=== PATIENT | female | born 1930 | race Caucasian/White ===

== ENCOUNTER 2017-12-22 20:45 | Inpatient (IN) | payer MEDICARE ==
[~2017-12-22] VITALS: Ht 152.4 cm; Wt 55.3 kg
[2017-12-22 20:20] VITALS: BP 123/61
--- NOTE | 2017-12-22 20:20 | NUR ---
Admitting 87 year old female from [facility] with diagnosis of S/P R Hip Fracture s/p fall at home. ORIF w/ kevin placement by Dr. Carrington on 12/20. Arrived to unit via gurney accompanied by 2 EMT's and daughter. No acute distress. Denies pain or discomfort at this time. VS WNL 123/61, HR 83, 19 RR, 99% RA. Breathing even and unlabored, denies SOB. Right hip incision site dressing dry and intact, pt refusing pictures at this time stating she "does not want the dressing removed until the doctor comes to see it", per RN at [facility], first dressing already done by (12/22/17) before pt transferred to ARU. No other skin issues noted, dry and intact, warm to touch. Oriented to room and unit. Ambulatory w/ walker x 1 assist with steady gait. made aware of pt arrival and med recon completed. All safety measures and fall precautions maintained. Call light and all personal belongings within reach. Will continue to monitor. Will endorse to AM shift.
--- NOTE | 2017-12-22 20:45 | NUR ---
Pt noted to have medications on bedside table (Synthroid 25 mcg, Anastrozole 1mg tA, and Multivitamins [I-Caps]), when informed that medications needed to be taken to send to pharmacy, patient refused stating she wishes to take her own medications. Explained hospital policy and procedures and that per protocol, medication brought from home needs to be taken to pharmacy and MD can give order for her to take her own meds, but pt continued to refuse. Safety maintained. Call light within reach. Will continue to monitor. Will endorse to AM shift. Addendum: 12/22/17 at 2255 by Tyler Reed RN Anastrozole 1mg tab.
[2017-12-22] MEDS ORDERED: Z GUARD REMEDY PASTE 57 GM TUBE TOP PRN (21:00)
--- NOTE | 2017-12-22 21:00 | NUR ---
Spoke with Veronica from Pharmacy, made aware of pt refusal for medications to be taken and brought to pharmacy. Safety maintained. Call light within reach. Will continue to monitor.
[2017-12-22] MEDS ORDERED: ANAS1TAB NG (21:24)
[2017-12-22] MEDS ORDERED: TRAM50TA2 PO (21:24)
[2017-12-22] MEDS ORDERED: LEVO50TA8 PO (21:24)
[2017-12-22] MEDS ORDERED: ENOX40DI SQ (21:24)
[2017-12-22] MEDS ORDERED: ACET-2154 PO (21:24)
[2017-12-22] MEDS: TRAMADOL HCL 50 MG TABLET PO SCH (21:45)
[2017-12-22] MEDS: ACETAMINOPHEN 325 MG TABLET PO SCH (21:45)
--- NOTE | 2017-12-22 22:00 | NUR ---
Per pt, do not wake her up if she falls asleep because she has a hard time falling asleep after being woken up. No facial indications of pain noted. All safety measures and fall precautions maintained. Call light within reach. Will continue to monitor.
[2017-12-23] MEDS: ACETAMINOPHEN 325 MG TABLET PO SCH ×4 (05:52→16:55)
--- NOTE | 2017-12-23 06:04 | NUR ---
Patient slept intermittently throughout the shift, waking up multiple times to call to use the restroom. Assisted to the restroom w/ walker x 1 assist. No acute distress. 0600 Tylenol 650 mg PO given. Refusing Synthroid because pt states she "wants to use her own medication". Safety maintained. Good pericare rendered. Turned and repositions for comfort. Refusing pictures at this time stating she "wants the doctor to see it first." All safety measures and fall precautions maintained. Call light and all personal belongings within reach. Will endorse inventory list to AM shift. Refusing to get ready for AM therapy, stating "I want to get as much sleep as I can before therapy." Will endorse to AM shift. Will continue to monitor.
[2017-12-23] MEDS: LEVOTHYROXINE SODIUM 50 MCG TABLET PO SCH (06:10)
[2017-12-23 06:13] VITALS: BP 107/59
[2017-12-23 07:09] VITALS: BP 110/57
[2017-12-23] MEDS: TRAMADOL HCL 50 MG TABLET PO SCH ×3 (08:25→16:54)
[2017-12-23] MEDS: ENOXAPARIN SODIUM 40 MG/0.4 ML DISP.SYRIN SQ SCH (08:27)
[2017-12-23] MEDS ORDERED: ANASTROZOLE 1 MG TABLET NG SCH (09:00)
--- NOTE | 2017-12-23 09:14 | NUR ---
Patient noted sitting up on side of the bed, all am medications taken, Patient self administered Arimidex at bedside, medication at bed side bagged and sent to pharmacy with patient consent, complaints of right hip pain 01/31, scheduled tramadol given at this time, no signs of distress noted, call light in reach, bed locked and in lowest position
[2017-12-23 09:26] LABS: BASOPHILS % (AUTO) 0.3 % (0.0-2.0); EOSINOPHILS # (AUTO) 0.2 K/uL (0.0-0.7); EOSINOPHILS % (AUTO) 1.3 % (0.0-7.0); HEMOGLOBIN 9.3 g/dL (10.9-14.3); LYMPHOCYTES # (AUTO) 1.1 K/uL (20.0-40.0); LYMPHOCYTES % (AUTO) 9.3 % (20.5-51.5); MEAN CORPUSCULAR HEMOGLOBIN 31.1 uug (24.7-32.8); MEAN CORPUSCULAR HGB CONC 34 g/dL (32.3-35.6); MEAN CORPUSCULAR VOLUME 90.7 fL (75.5-95.3); MONOCYTES # (AUTO) 1.2 K/uL (2.0-10.0); NEUTROPHILS # (AUTO) 9.2 K/uL (1.8-8.9); NEUTROPHILS % (AUTO) 79.1 % (38.5-71.5); PLATELET COUNT (AUTO) 188 K/uL (179-408); RED BLOOD CELL COUNT(AUTO) 2.98 MIL/uL (3.63-4.92); WHITE BLOOD COUNT (AUTO) 11.6 K/uL (3.8-11.8)
[2017-12-23 09:27] LABS: CARBON DIOXIDE 24 mmol/L (21-32); CHLORIDE 104 mmol/L (98-107); CREATININE 0.9 mg/dL (0.6-1.3); GLUCOSE 131 mg/dL (74-106); POTASSIUM 3.4 mmol/L (3.5-5.1); UREA NITROGEN, BLOOD 16 mg/dL (7-18)
[2017-12-23 10:01] LABS: BAND % (MANUAL) 1 % (0-10); LYMPHOCYTES % (MANUAL) 11 % (20-40); METAMYELOCYTES % 1 % (0-1); MONOCYTES % (MANUAL) 13 % (2-10); MYELOCYTES % 2 % (0-0); NEUTROPHILS % (MANUAL) 72 % (42-75)
[2017-12-23 16:08] VITALS: BP 110/51
[2017-12-23 21:00] VITALS: BP 106/60
[2017-12-23] MEDS ORDERED: TRAMADOL HCL 50 MG TABLET ONE (22:21)
--- NOTE | 2017-12-24 01:15 | NUR ---
aaox4 sitting at the chair at beginning of the shift. needs attended. ambulates to the BR with walker. Voiding freely. complained of pain on the right hip. tramadol 50 mg po given for pain. will monitor patient. assisted to bed. slept well. kept comfortable. no acute disttress noted. right hip dressing clean dry and intact.
--- NOTE | 2017-12-24 05:18 | NUR ---
slept well most of the shift. needs attended. denies any pain nor any discomfort. will monitor patient voiding well.
[2017-12-24 05:56] VITALS: BP 120/66
[2017-12-24] MEDS: LEVOTHYROXINE SODIUM 50 MCG TABLET PO SCH (06:03)
[2017-12-24 08:00] VITALS: BP 122/68
--- NOTE | 2017-12-24 08:17 | NUR ---
patient noted sitting up on the side of the bed, no complaints of pain at this time, no signs of distress noted, call light in reach, bed locked and in lowest position, assisted to restroom via walker at this time
[2017-12-24] MEDS: ENOXAPARIN SODIUM 40 MG/0.4 ML DISP.SYRIN SQ SCH (08:47)
[2017-12-24] MEDS: [UNRECOGNIZED DRUG - OTHER] PO SCH (08:47)
[2017-12-24] MEDS: ANASTROZOLE 1 MG PO SCH (08:47)
[2017-12-24] MEDS ORDERED: TRAMADOL HCL 50 MG TABLET PO PRN (17:00)
--- NOTE | 2017-12-24 19:58 | NUR ---
aaox4 ambulates to the BR with walker. voiding well. right hip dressing clean dry and intact. denies any pain at this time. will monitor patient. kept comfortable. right leg swollen. Right leg elevated on pillows while in bed. making needs known.will monitor patient.
[2017-12-24 20:26] VITALS: BP 116/58
[2017-12-24] MEDS: ACETAMINOPHEN 325 MG TABLET PO PRN (20:55)
[2017-12-25] MEDS: TRAMADOL HCL 50 MG TABLET PO PRN ×2 (03:17→13:22)
--- NOTE | 2017-12-25 04:57 | NUR ---
sleeping at short intervals. complained of right sided hip pain.medicated with tramadol as ordered. needs attended. ambulates to the BR with walker under supervision. voiding well.will monitor patient.
[2017-12-25 05:03] VITALS: BP 114/61
[2017-12-25] MEDS: LEVOTHYROXINE SODIUM 50 MCG TABLET PO SCH (06:22)
--- NOTE | 2017-12-25 07:33 | NUR ---
Patient noted being assisted to restroom at this time, no complaints of pain, no signs of distress, call light in reach
[2017-12-25 08:00] VITALS: BP 107/57
[2017-12-25] MEDS: ANASTROZOLE 1 MG PO SCH (08:56)
[2017-12-25] MEDS: [UNRECOGNIZED DRUG - OTHER] PO SCH (08:56)
[2017-12-25] MEDS: ENOXAPARIN SODIUM 40 MG/0.4 ML DISP.SYRIN SQ SCH (08:58)
[2017-12-25] MEDS: SENNOSIDES 1 TABLET PO SCH ×2 (11:41→20:28)
--- NOTE | 2017-12-25 13:50 | NUR ---
INTERDISCIPLINARY TEAM CONFERENCE
--- NOTE | 2017-12-25 15:12 | NUR ---
I agree Addendum: 12/25/17 at 1512 by TONY HERNÁNDEZ OT Amended: Links added.
[2017-12-25 16:00] VITALS: BP 115/53
[2017-12-25] MEDS ORDERED: POTASSIUM CHLORIDE 20 MEQ TAB.PRT.SR PO ONE (16:45)
--- NOTE | 2017-12-25 19:30 | NUR ---
Received report from day shift nurse. Patient stable at start of shift with no acute distress. Patient currently walking around the room with walker. Pertinent assessment completed. Noted with bruising at RLE. Dressing is clean, dry, intact. No s/s of infection or inflammation noted at surgical site. Patient has swelling of RLE. Will keep extremity elevated during shift. Patient denies pain & SOB. Bed in low position & locked. Call light within reach. Will continue to monitor through shift.
[2017-12-25] MEDS: DOCUSATE SODIUM 100 MG CAPSULE PO SCH (20:28)
--- NOTE | 2017-12-25 20:28 | NUR ---
Patient refused 2100 dose of colace & senokot. Patient stating that she already had laxatives this AM & is having regular bowel movements. Explained risks & benefits. Will continue to monitor.
[2017-12-25 21:09] VITALS: BP 106/59
[2017-12-26 05:37] VITALS: BP 114/56
[2017-12-26] MEDS: LEVOTHYROXINE SODIUM 50 MCG TABLET PO SCH (06:32)
[2017-12-26 08:07] VITALS: BP 107/57
[2017-12-26] MEDS: [UNRECOGNIZED DRUG - OTHER] PO SCH (09:59)
[2017-12-26] MEDS: ANASTROZOLE 1 MG PO SCH (09:59)
[2017-12-26] MEDS: ENOXAPARIN SODIUM 40 MG/0.4 ML DISP.SYRIN SQ SCH (10:01)
[2017-12-26] MEDS ORDERED: LEVO25TA2 PO (10:09)
[2017-12-26 11:03] LABS: EOSINOPHILS # (AUTO) 0.2 K/uL (0.0-0.7); WHITE BLOOD COUNT (AUTO) 9.2 K/uL (3.8-11.8)
[2017-12-26 11:07] LABS: BASOPHILS % (AUTO) 0.2 % (0.0-2.0); EOSINOPHILS % (AUTO) 2.2 % (0.0-7.0); HEMOGLOBIN 9.1 g/dL (10.9-14.3); LYMPHOCYTES # (AUTO) 1.2 K/uL (20.0-40.0); LYMPHOCYTES % (AUTO) 12.8 % (20.5-51.5); MEAN CORPUSCULAR HEMOGLOBIN 32.3 uug (24.7-32.8); MEAN CORPUSCULAR HGB CONC 35 g/dL (32.3-35.6); MEAN CORPUSCULAR VOLUME 92.4 fL (75.5-95.3); MONOCYTES # (AUTO) 1.3 K/uL (2.0-10.0); NEUTROPHILS # (AUTO) 6.5 K/uL (1.8-8.9); NEUTROPHILS % (AUTO) 70.8 % (38.5-71.5); RED BLOOD CELL COUNT(AUTO) 2.82 MIL/uL (3.63-4.92)
[2017-12-26 11:14] LABS: PLATELET COUNT (AUTO) 294 K/uL (179-408)
[2017-12-26 11:59] LABS: EOSINOPHILS % (MANUAL) 1 % (0-8); LYMPHOCYTES % (MANUAL) 13 % (20-40); METAMYELOCYTES % 5 % (0-1); MONOCYTES % (MANUAL) 13 % (2-10); MYELOCYTES % 2 % (0-0); NEUTROPHILS % (MANUAL) 66 % (42-75)
[2017-12-26 16:22] VITALS: BP 105/59
[2017-12-26] MEDS: TRAMADOL HCL 50 MG TABLET PO PRN (17:05)
--- NOTE | 2017-12-26 20:00 | NUR ---
PT ALERT AND ORIENTED IN BED. NO DISTRESS NOTED. REFUSING THE COLACE AND SENOKOT, GAVE EDUCATION, PT STILL REFUSING. ICE PACK PLACED ON RIGHT HIP. SAFETY MAINTAINED. CALL LIGHT WITHIN REACH. WILL CONTINUE TO MONITOR.
[2017-12-26 20:42] VITALS: BP 106/51
[2017-12-26] MEDS: DOCUSATE SODIUM 100 MG CAPSULE PO SCH (20:56)
[2017-12-26] MEDS: SENNOSIDES 1 TABLET PO SCH (20:56)
--- NOTE | 2017-12-27 06:58 | NUR ---
PT ALERT AND ORIENTED IN BED. NO DISTRESS NOTED. COMPLIANT WITH NURSING CARE. CLEAN AND DRY. ICE PACK ON RIGHT LEG. SAFETY MAINTAINED. CALL LIGHT WITHIN REACH.
[2017-12-27] MEDS ORDERED: LEVOTHYROXINE SODIUM 25 MCG TABLET PO SCH (07:00)
[2017-12-27 08:22] VITALS: BP 106/53
[2017-12-27] MEDS: ANASTROZOLE 1 MG PO SCH (09:42)
[2017-12-27] MEDS: [UNRECOGNIZED DRUG - OTHER] PO SCH (09:42)
[2017-12-27] MEDS: TRAMADOL HCL 50 MG TABLET PO PRN ×2 (09:43→21:55)
[2017-12-27] MEDS: ENOXAPARIN SODIUM 40 MG/0.4 ML DISP.SYRIN SQ SCH (09:47)
[2017-12-27 16:09] VITALS: BP 100/52
[2017-12-27 19:30] VITALS: BP 107/55
[2017-12-27] MEDS: DOCUSATE SODIUM 100 MG CAPSULE PO SCH (20:33)
[2017-12-27] MEDS: SENNOSIDES 1 TABLET PO SCH (20:34)
--- NOTE | 2017-12-28 04:13 | NUR ---
In fair condition. AAOx3. OOB to the BR with walker to the BR. Voiding without any difficulty. Refuse senokot and colace @ 2100, says she already had a BM. Even though how I explained the need for stool softener because she is on pain management so that she dont get constipated, still patient refused it. Pain meds given as needed. Right lower extremity swollen, black and blue. For doppler/ duplex study of the RLE today. Will monitor patient.Needs attended. Kept comfortable.Fall precautions maintained. Siderails up for safety.
[2017-12-28] MEDS: LEVOTHYROXINE 25 MCG PO SCH (06:44)
[2017-12-28] MEDS: [UNRECOGNIZED DRUG - OTHER] PO SCH (06:44)
[2017-12-28 08:00] VITALS: BP 95/48
[2017-12-28] MEDS: [UNRECOGNIZED DRUG - OTHER] PO SCH (08:29)
[2017-12-28] MEDS: ANASTROZOLE 1 MG PO SCH (08:29)
[2017-12-28] MEDS: ENOXAPARIN SODIUM 40 MG/0.4 ML DISP.SYRIN SQ SCH (08:31)
--- NOTE | 2017-12-28 09:37 | NUR ---
Patient noted sitting on the side of the bed, no complaints of pain, no signs of distress noted, call light in reach, bed locked and in lowest position, x 2 bed rails
[2017-12-28] MEDS: TRAMADOL HCL 50 MG TABLET PO PRN ×2 (12:31→21:15)
[2017-12-28 16:00] VITALS: BP 125/62
[2017-12-28 19:30] VITALS: BP 113/55
[2017-12-28] MEDS: DOCUSATE SODIUM 100 MG CAPSULE PO SCH (21:14)
[2017-12-28] MEDS: SENNOSIDES 1 TABLET PO SCH (21:14)
--- NOTE | 2017-12-29 01:01 | NUR ---
aaox4 ambulates to the BR voiding without difficulty. needs attended. medicated with tramadol for right hip pain. RLE swollen, hematoma noted. Doppler study done, negative for DVT. Made comfortable. No acute distress noted. fall precautions maintained. siderails up for safety. RLE elevated on pillow.
[2017-12-29] MEDS: [UNRECOGNIZED DRUG - OTHER] PO SCH (06:47)
[2017-12-29] MEDS: LEVOTHYROXINE 25 MCG PO SCH (06:47)
--- NOTE | 2017-12-29 07:50 | NUR ---
Patient noted sitting on the side of the bed, no complaints of pain at this time, no signs of distress noted, call light in reach, bed locked and in lowest position, all needs met at this time
[2017-12-29 08:00] VITALS: BP 117/56
[2017-12-29] MEDS: [UNRECOGNIZED DRUG - OTHER] PO SCH (08:39)
[2017-12-29] MEDS: ANASTROZOLE 1 MG PO SCH (08:39)
[2017-12-29] MEDS: ENOXAPARIN SODIUM 40 MG/0.4 ML DISP.SYRIN SQ SCH (08:40)
[2017-12-29 19:55] LABS: BASOPHILS % (AUTO) 0.4 % (0.0-2.0); EOSINOPHILS # (AUTO) 0.2 K/uL (0.0-0.7); EOSINOPHILS % (AUTO) 2.1 % (0.0-7.0); HEMATOCRIT 27.2 % (31.2-41.9); HEMOGLOBIN 9.4 g/dL (10.9-14.3); LYMPHOCYTES # (AUTO) 1.4 K/uL (20.0-40.0); LYMPHOCYTES % (AUTO) 14.3 % (20.5-51.5); MEAN CORPUSCULAR HEMOGLOBIN 32.3 uug (24.7-32.8); MEAN CORPUSCULAR HGB CONC 34 g/dL (32.3-35.6); MONOCYTES # (AUTO) 1.2 K/uL (2.0-10.0); NEUTROPHILS # (AUTO) 6.9 K/uL (1.8-8.9); NEUTROPHILS % (AUTO) 71.2 % (38.5-71.5); PLATELET COUNT (AUTO) 350 K/uL (179-408); RED BLOOD CELL COUNT(AUTO) 2.89 MIL/uL (3.63-4.92); WHITE BLOOD COUNT (AUTO) 9.7 K/uL (3.8-11.8)
[2017-12-29 19:58] LABS: CARBON DIOXIDE 27 mmol/L (21-32); CHLORIDE 102 mmol/L (98-107); CREATININE 0.8 mg/dL (0.6-1.3); GLUCOSE 157 mg/dL (74-106); POTASSIUM 4.1 mmol/L (3.5-5.1); UREA NITROGEN, BLOOD 15 mg/dL (7-18)
--- NOTE | 2017-12-29 20:00 | NUR ---
RECEIVED PATIENT AWAKE IN BED WITH VISITOR AT BEDSIDE. PATIENT IS A/O X4. DENIES PAIN OR DISCOMFORT. PATIENT IS CONCERNED WITH THE INCREASED SWELLING NOTED TO HER RIGHT LEG. REPORTED DURING SHIFT CHANGE THAT DR. CARDONA WAS NOTIFIED AND AWARE OF SWELLING. NEURO-VASCULAR CHECKS WNL. PEDAL PULSES WNL. NO RESP. DISTRESS NOTED. VS WNL. CALL LIGHT IN REACH. ALL NEEDS ATTENDED. WILL CONTINUE TO MONITOR AND ASSESS.
[2017-12-29] MEDS: SENNOSIDES 1 TABLET PO SCH (20:47)
[2017-12-29] MEDS: DOCUSATE SODIUM 100 MG CAPSULE PO SCH (20:47)
[2017-12-29 20:49] LABS: BAND % (MANUAL) 5 % (0-10); EOSINOPHILS % (MANUAL) 3 % (0-8); LYMPHOCYTES % (MANUAL) 15 % (20-40); METAMYELOCYTES % 1 % (0-1); MONOCYTES % (MANUAL) 10 % (2-10); MYELOCYTES % 1 % (0-0); NEUTROPHILS % (MANUAL) 65 % (42-75)
[2017-12-29 21:10] VITALS: BP 122/74
[2017-12-29] MEDS: TRAMADOL HCL 50 MG TABLET PO PRN (22:28)
[2017-12-29 22:36] LABS: THYROID STIMULATING HORMONE 2.679 mIU/mL (0.358-3.740)
[2017-12-30 05:30] VITALS: BP 131/63
[2017-12-30] MEDS: LEVOTHYROXINE 25 MCG PO SCH (06:35)
[2017-12-30] MEDS: [UNRECOGNIZED DRUG - OTHER] PO SCH (06:35)
--- NOTE | 2017-12-30 06:46 | NUR ---
PATIENT RESTING IN BED. SLEPT WELL. DENIES PAIN AT THIS THIS TIME. CALL LIGHT IN REACH. ALL NEEDS ATTENDED. WILL CONTINUE TO MONITOR.
[2017-12-30 08:16] VITALS: BP 94/52
[2017-12-30] MEDS: TRAMADOL HCL 50 MG TABLET PO PRN (09:25)
[2017-12-30] MEDS: ANASTROZOLE 1 MG PO SCH (09:26)
[2017-12-30] MEDS: [UNRECOGNIZED DRUG - OTHER] PO SCH (09:26)
[2017-12-30] MEDS: ENOXAPARIN SODIUM 40 MG/0.4 ML DISP.SYRIN SQ SCH (10:44)
--- NOTE | 2017-12-30 15:17 | NUR ---
SBAR report received, board updated. Pt assessed, denies any c/o discomfort, pain, or acute distress. Pt compliant with all morning medication administration. Pt able to make her needs known without difficulty. Pt compliant with all therapies as offered. Bed in locked, lowest position with side rails up x2. All safety and comfort measures implemented at this time. Personal items and call light placed within reach, will continue to monitor.
[2017-12-30 17:19] VITALS: BP 110/60
[2017-12-30] MEDS: DOCUSATE SODIUM 100 MG CAPSULE PO SCH (20:23)
[2017-12-30] MEDS: SENNOSIDES 1 TABLET PO SCH (20:36)
[2017-12-30 21:12] VITALS: BP 115/50
[2017-12-31] MEDS: ACETAMINOPHEN 325 MG TABLET PO PRN (03:02)
--- NOTE | 2017-12-31 05:58 | NUR ---
Patient slept comfortably throughout the night. No c/o pain and discomfort. No acute distress. No SOB. Kept clean and dry. BLE kept elevated. All needs attended to promptly. Call light within reach. Will continue to monitor.
[2017-12-31] MEDS: LEVOTHYROXINE 25 MCG PO SCH (06:38)
[2017-12-31] MEDS: [UNRECOGNIZED DRUG - OTHER] PO SCH (06:38)
[2017-12-31 08:00] VITALS: BP 100/46
[2017-12-31] MEDS: [UNRECOGNIZED DRUG - OTHER] PO SCH (08:47)
[2017-12-31] MEDS: ANASTROZOLE 1 MG PO SCH (08:47)
[2017-12-31] MEDS: ENOXAPARIN SODIUM 40 MG/0.4 ML DISP.SYRIN SQ SCH (08:51)
[2017-12-31] MEDS: TRAMADOL HCL 50 MG TABLET PO PRN (09:43)
--- NOTE | 2017-12-31 14:29 | NUR ---
SBAR report received, board updated. Pt assessed, no c/o pain or discomfort. Pt assisted to shower, incisional wound shows no s/s of infection and dressings changed as ordered. Pt compliant with all routine morning medication administration. Pt assisted to bathroom and pack to wheelchair safely. Pt able to make needs known and all safety measures in place. Call light and personal items placed within reach. Bed in locked and lowest position with side rails up x2. Will continue to monitor.
[2017-12-31 15:35] VITALS: BP 125/53
--- NOTE | 2017-12-31 16:38 | NUR ---
Pt reports new s/s of swelling, non-pitting edema, and faint bruise appearing to the top and right side of the right foot. Pictures taken and updated in chart. MD notified. Surgeon Dr. Blackburn called, and paged by biomechanical engineer. Will await directions on how to follow up. No other c/o pain and concerns addressed.
[2017-12-31] MEDS: DOCUSATE SODIUM 100 MG CAPSULE PO SCH (20:17)
[2017-12-31] MEDS: SENNOSIDES 1 TABLET PO SCH (20:17)
[2017-12-31 20:26] VITALS: BP 107/57
[2018-01-01] MEDS: ACETAMINOPHEN 325 MG TABLET PO PRN ×2 (02:55→22:06)
--- NOTE | 2018-01-01 04:24 | NUR ---
aaox4 ambulates to the BR with walker. No acute distress noted. Needs attended. RLE non-pitting edema noted. Bruising noted. RLE elevated on pillow. Kept comfortable. Will monitor patient. complained of foot pain,Tylenol given, Will monitor patient.
[2018-01-01 06:10] VITALS: BP 146/75
[2018-01-01] MEDS: [UNRECOGNIZED DRUG - OTHER] PO SCH (06:41)
[2018-01-01] MEDS: LEVOTHYROXINE 25 MCG PO SCH (06:41)
[2018-01-01 07:58] LABS: BASOPHILS % (AUTO) 0.7 % (0.0-2.0); EOSINOPHILS # (AUTO) 0.2 K/uL (0.0-0.7); EOSINOPHILS % (AUTO) 3.2 % (0.0-7.0); HEMATOCRIT 27.6 % (31.2-41.9); HEMOGLOBIN 9.6 g/dL (10.9-14.3); LYMPHOCYTES # (AUTO) 1.3 K/uL (20.0-40.0); LYMPHOCYTES % (AUTO) 19.2 % (20.5-51.5); MEAN CORPUSCULAR HEMOGLOBIN 32.5 uug (24.7-32.8); MEAN CORPUSCULAR HGB CONC 35 g/dL (32.3-35.6); MEAN CORPUSCULAR VOLUME 93.7 fL (75.5-95.3); MONOCYTES # (AUTO) 0.8 K/uL (2.0-10.0); MONOCYTES % (AUTO) 11.9 % (0.0-11.0); NEUTROPHILS # (AUTO) 4.4 K/uL (1.8-8.9); PLATELET COUNT (AUTO) 348 K/uL (179-408); RED BLOOD CELL COUNT(AUTO) 2.95 MIL/uL (3.63-4.92); WHITE BLOOD COUNT (AUTO) 6.8 K/uL (3.8-11.8)
[2018-01-01 08:11] LABS: ALANINE AMINOTRANSFERASE 70 U/L (14-59); ALKALINE PHOSPHATASE 196 U/L (50-136); ASPARTATE AMINOTRANSFERASE 34 U/L (15-37); BILIRUBIN,TOTAL 0.9 mg/dL (0.2-1.0); CARBON DIOXIDE 28 mmol/L (21-32); CHLORIDE 103 mmol/L (98-107); CREATININE 0.9 mg/dL (0.6-1.3); GLUCOSE 107 mg/dL (74-106); MAGNESIUM 2.1 mg/dL (1.8-2.4); PHOSPHOROUS 3.3 mg/dL (2.5-4.9); POTASSIUM 3.8 mmol/L (3.5-5.1); TOTAL PROTEIN, SERUM 5.7 g/dL (6.4-8.2); UREA NITROGEN, BLOOD 16 mg/dL (7-18)
[2018-01-01] MEDS: ANASTROZOLE 1 MG PO SCH (08:17)
[2018-01-01] MEDS: [UNRECOGNIZED DRUG - OTHER] PO SCH (08:17)
[2018-01-01] MEDS: TRAMADOL HCL 50 MG TABLET PO PRN ×2 (08:18→23:42)
[2018-01-01] MEDS: ENOXAPARIN SODIUM 40 MG/0.4 ML DISP.SYRIN SQ SCH (08:20)
[2018-01-01 08:29] VITALS: BP 102/59
[2018-01-01 09:44] LABS: BAND % (MANUAL) 4 % (0-10); BASOPHILS % (MANUAL) 1 % (0-2); EOSINOPHILS % (MANUAL) 4 % (0-8); LYMPHOCYTES % (MANUAL) 20 % (20-40); METAMYELOCYTES % 1 % (0-1); MONOCYTES % (MANUAL) 12 % (2-10); MYELOCYTES % 1 % (0-0); NEUTROPHILS % (MANUAL) 57 % (42-75)
--- NOTE | 2018-01-01 13:35 | NUR ---
INTERDISCIPLINARY TEAM CONFERENCE
[2018-01-01 16:06] VITALS: BP 113/62
--- NOTE | 2018-01-01 18:27 | NUR ---
SBAR report received, board updated. Pt assessed, denies pain and no distress noted. Pt able to make needs known. Pt compliant with all routine medication administration. Anticipated discharge plans discussed and arranged for 1300 picker and sorter load and unload tomorrow by ambulance through ed case manager. Pt assisted with repositioning for comfort and to elevate RLE and offload BL heels. No s/s of infection present at incision site. Bruises remain evident to entire RLE with depended edema. All comfort and safety needs attended to promptly this shift. Call light and personal items placed within reach. Will continue to monitor, and endorse to oncoming senior technologist.
--- NOTE | 2018-01-01 19:00 | NUR ---
Received patient in bed. Alert and verbally responsive. Able to make needs known. Denies any pain and discomfort at this time. No acute distress. No SOB. Both lower extremities kept elevated with pillows. All needs attended to promptly. Call light within reach. Will continue to monitor.
[2018-01-01 20:40] VITALS: BP 114/57
[2018-01-01] MEDS: DOCUSATE SODIUM 100 MG CAPSULE PO SCH (20:55)
[2018-01-01] MEDS: SENNOSIDES 1 TABLET PO SCH (20:56)
--- NOTE | 2018-01-01 21:30 | NUR ---
Patient seen by Dr. Alvarenga this evening. Per Dr. Alvarenga he wants patient to stay till Thursday. TMS and Prescription done as of now. Per MD he says he will speak with CM first and confirm if patient will be discharged home tomorrow 01/02. Patient is aware.
[2018-01-02] MEDS: [UNRECOGNIZED DRUG - OTHER] PO SCH (06:26)
[2018-01-02] MEDS: LEVOTHYROXINE 25 MCG PO SCH (06:26)
--- NOTE | 2018-01-02 06:48 | NUR ---
Patient slept comfortably throughout the night. No c/o pain and discomfort. No acute distress. No SOB. Kept clean and dry. Tolerated AM med. All needs attended to promptly. Call light within reach. Will continue to monitor.
[2018-01-02 08:23] VITALS: BP 104/53
[2018-01-02] MEDS: ENOXAPARIN SODIUM 40 MG/0.4 ML DISP.SYRIN SQ SCH (09:05)
[2018-01-02] MEDS: ANASTROZOLE 1 MG PO SCH (09:06)
[2018-01-02] MEDS: [UNRECOGNIZED DRUG - OTHER] PO SCH (09:06)
--- NOTE | 2018-01-02 12:17 | NUR ---
Patient noted sitting up on the side of the bed, denies pain at this time, no signs of distress, call light in reach, bed locked and in lowest position, x 2 bed rails, all AM medications taken without trouble, all needs met at this time
[2018-01-02] MEDS: TRAMADOL HCL 50 MG TABLET PO PRN (16:12)
--- NOTE | 2018-01-02 19:30 | NUR ---
PT ALERT AND ORIENTED IN BED. NO DISTRESS NOTED. CLEAN AND DRY. ALL NEEDS MET, COMPLIANT WITH NURSING CARE. SAFETY MAINTAINED. CALL LIGHT WITHIN REACH. WILL CONTINUE TO MONITOR.
[2018-01-02 20:02] VITALS: BP 113/53
[2018-01-02] MEDS: DOCUSATE SODIUM 100 MG CAPSULE PO SCH (20:54)
[2018-01-02] MEDS: SENNOSIDES 1 TABLET PO SCH (20:55)
[2018-01-03] MEDS: TRAMADOL HCL 50 MG TABLET PO PRN ×2 (05:46→20:39)
[2018-01-03] MEDS: LEVOTHYROXINE 25 MCG PO SCH (06:32)
[2018-01-03] MEDS: [UNRECOGNIZED DRUG - OTHER] PO SCH (06:32)
--- NOTE | 2018-01-03 06:51 | NUR ---
PT RESTING IN BED. NO DISTRESS NOTED. PAIN MEDICATION GIVEN ORDERED. COMPLIANT WITH NURSING CARE. SAFETY MAINTAINED. CALL LIGHT WITHIN REACH.
[2018-01-03 08:00] VITALS: BP 118/55
[2018-01-03] MEDS: ANASTROZOLE 1 MG PO SCH (08:58)
[2018-01-03] MEDS: ENOXAPARIN SODIUM 40 MG/0.4 ML DISP.SYRIN SQ SCH (08:58)
[2018-01-03] MEDS: [UNRECOGNIZED DRUG - OTHER] PO SCH (08:58)
--- NOTE | 2018-01-03 15:11 | NUR ---
Patient's daughter noted taking belongings home, prior to discharge
[2018-01-03 15:50] VITALS: BP 101/57
[2018-01-03] MEDS: DOCUSATE SODIUM 100 MG CAPSULE PO SCH (20:34)
[2018-01-03] MEDS: SENNOSIDES 1 TABLET PO SCH (20:53)
--- NOTE | 2018-01-03 21:00 | NUR ---
RECEIVED Pt IN BED, AWAKE, A/O X 4, COMPLIANT AND COOPERATIVE WITH MEDS AND CARE STAFF, VS STABLE, COMPLAINING OF PAIN ON SURGICAL SITE AND REQUESTING FOR TRAMADOL. GIVEN TRAMADOL PO PRN, WILL CLOSELY MONITOR Pt. EMPHASIZED SAFETY, BED AT LOWEST POSITION WITH WHEELS LOCKED, SIDE RAILS UP X 2, CALL LIGHT IN REACH. Pt IS AWARE OF EARLY DISCHARGE IN THE MORNING.
[2018-01-03 21:44] VITALS: BP 126/56
[2018-01-04 05:03] VITALS: BP 123/57
[2018-01-04] MEDS: LEVOTHYROXINE 25 MCG PO SCH (07:00)
[2018-01-04] MEDS: [UNRECOGNIZED DRUG - OTHER] PO SCH (07:00)
--- NOTE | 2018-01-04 07:30 | NUR ---
Patient awake, sitting on the side of the bed, verbally responsive, coherent, not in any form of acute distress. All Dressed up ready to be picked up for 's appointment. Patient denies any pain or discomfort at this time. Assisted patient to the bathroom and back to bed. Call light placed within reach reminded to use call light for assistance with verbalized understanding.
[2018-01-04 08:23] VITALS: BP 118/59
[2018-01-04] MEDS: ANASTROZOLE 1 MG PO SCH (08:25)
[2018-01-04] MEDS: [UNRECOGNIZED DRUG - OTHER] PO SCH (08:25)
[2018-01-04] MEDS: ENOXAPARIN SODIUM 40 MG/0.4 ML DISP.SYRIN SQ SCH (08:28)
--- NOTE | 2018-01-04 08:45 | NUR ---
Received from Dr. Frost discharge order to home with assisted home health. Discharge instructions provided to the patient with verbalized understanding. Discharge papers signed and given to the patient. Medication list with prescription provided to the patient. Patient refused to have pictures taken on surgical wound since pictures were already taken yesterday. Surgical dressing intact, clean and dry. Provided with front wheel walker and bedside commode. All belongings and DME's brought with the patient. Medications from home given back to the patient. Patient remains alert, not in any form of acute distress, denies any pain or discomfort. X-ray result in CD provided to patient needed for Ortho follow up today at 9am. Patient picked up by Ambuldinh via gurney. Patient wanted to go home after Dr's appointment hence advised transportation and is agreeable. Faxed prescription to preferred pharmacy
== END 2018-01-04 08:45 | disposition home health service (06) | DRG 560 ==
PROVIDERS: ADMIT Physical Medicine & Rehabilitation Pain Medicine; ATTEND Physical Medicine & Rehabilitation Pain Medicine
DX: S72.321D Displaced transverse fracture of shaft of right femur, subsequent encounter for closed fracture with routine healing (principal); D62 Acute posthemorrhagic anemia; D68.59 Other primary thrombophilia; E03.9 Hypothyroidism, unspecified; Z85.3 Personal history of malignant neoplasm of breast; Z90.13 Acquired absence of bilateral breasts and nipples; W01.0XXD Fall on same level from slipping, tripping and stumbling without subsequent striking against object, subsequent encounter; M16.0 Bilateral primary osteoarthritis of hip; M81.0 Age-related osteoporosis without current pathological fracture; M54.16 Radiculopathy, lumbar region; Z88.1 Allergy status to other antibiotic agents; Z88.0 Allergy status to penicillin; Z88.8 Allergy status to other drugs, medicaments and biological substances; R60.9 Edema, unspecified
CPT/HCPCS: 36415; 70030-TC; 73502; 73551; 73630; 83735; 84100; 84443; 85025; 92507; 97110; 97112; 97116; 97165; 97530; 97535; A4663; J1650